=== PATIENT | male | born 1970 | race Caucasian/White ===

== ENCOUNTER 2017-06-08 17:25 | Emergency (ER) | payer BC, OTHER ==
[~2017-06-08] VITALS: Ht 188 cm; Wt 97.5 kg
[2017-06-08 17:56] VITALS: BP_SYST 126
--- NOTE | 2017-06-08 18:00 | NUR ---
Patient triaged and placed in waiting room. VSS and patient appears in no acute distress at this time. Accompanied by FRIEND, awaiting available bed, and MD notified of need for MSE.
--- NOTE | 2017-06-08 19:30 | NUR ---
Placed in hallway.
--- NOTE | 2017-06-08 19:30 | NUR ---
Pt stubbed L pinky toe about a week ago. 9/10 pain and swelling. Will continue to monitor.
--- NOTE | 2017-06-08 19:40 | NUR ---
Sima ROBLES assessing pt.
[2017-06-08 20:06] VITALS: BP_SYST 126
--- NOTE | 2017-06-08 20:06 | NUR ---
Patient given written and verbal discharge instructions and verbalizes understanding. ER MD discussed with patient the results and treatment provided. Patient in stable condition. ID arm band removed. Rx of Motrin given. Patient educated on pain management and to follow up with PMD. Pain Scale 0/10. Opportunity for questions provided and answered.
== END 2017-06-08 20:06 | disposition home or self-care (01) ==
LOC: SED 17:25
DX: S92.532A Displaced fracture of distal phalanx of left lesser toe(s), initial encounter for closed fracture (principal); J45.909 Unspecified asthma, uncomplicated; R03.0 Elevated blood-pressure reading, without diagnosis of hypertension; W23.0XXA Caught, crushed, jammed, or pinched between moving objects, initial encounter; Y93.89 Activity, other specified; Y92.89 Other specified places as the place of occurrence of the external cause; Y99.8 Other external cause status
CPT/HCPCS: 99284

== ENCOUNTER 2017-07-08 12:42 | Emergency (ER) | payer BC ==
[~2017-07-08] VITALS: Ht 188 cm; Wt 97.5 kg
[2017-07-08 12:57] VITALS: BP_SYST 136
[2017-07-08] MEDS ORDERED: ALBUTEROL SULFATE 0.083% 2.5 MG/3 ML VIAL.NEB INH ONE (13:15)
[2017-07-08 13:53] VITALS: BP_SYST 132
== END 2017-07-08 13:53 | disposition home or self-care (01) ==
LOC: SED 12:42
DX: J45.901 Unspecified asthma with (acute) exacerbation (principal)
CPT/HCPCS: 71045; 94640; 99283

== ENCOUNTER 2017-09-09 15:26 | Emergency (ER) | payer BC ==
[~2017-09-09] VITALS: Ht 188 cm; Wt 97.5 kg
[2017-09-09 15:26] VITALS: BP_SYST 120
[2017-09-09 16:08] LABS: BASOPHILS # (AUTO) 0.1 K/uL (0.0-0.2); BASOPHILS % (AUTO) 0.8 % (0.0-2.0); EOSINOPHILS # (AUTO) 0.5 K/uL (0.0-0.4); EOSINOPHILS % (AUTO) 5.8 % (0.0-4.0); HEMATOCRIT 40.4 % (36-54); HEMOGLOBIN 13.5 g/dL (14.0-18.0); LYMPHOCYTES # (AUTO) 2.2 K/uL (1.0-5.5); LYMPHOCYTES % (AUTO) 26.5 % (20.5-51.5); MEAN CORPUSCULAR HEMOGLOBIN 31 pg (27-31); MEAN CORPUSCULAR HGB CONC 33 % (32-36); MEAN CORPUSCULAR VOLUME 92 fL (79.0-98.0); MONOCYTES # (AUTO) 0.6 K/uL (0.0-1.0); MONOCYTES % (AUTO) 6.8 % (1.7-9.3); NEUTROPHILS # (AUTO) 4.8 K/uL (1.8-7.7); NEUTROPHILS % (AUTO) 60.1 % (40.0-70.0); PLATELET COUNT (AUTO) 263 K/uL (130-430); RED BLOOD CELL COUNT(AUTO) 4.41 MIL/uL (4.2-6.2); RED CELL DISTRIBUTION WIDTH 13.3 % (9.0-15.0); WHITE BLOOD COUNT (AUTO) 8.2 K/uL (4.8-10.8)
[2017-09-09 16:15] LABS: CALCIUM 9.3 mg/dL (8.4-11.0); CREATININE 0.75 mg/dL (0.55-1.30); POTASSIUM 3.7 mmol/L (3.5-5.1)
[2017-09-09 16:19] LABS: PROTHROMBIN TIME 10.1 SECS (9.5-12.5)
[2017-09-09 16:23] LABS: ALBUMIN 3.7 g/dL (3.4-4.8); TOTAL BILIRUBIN 0.3 mg/dL (0.0-1.0)
[2017-09-09 17:07] VITALS: BP_SYST 121
== END 2017-09-09 17:05 | disposition home or self-care (01) ==
LOC: SED 15:26
DX: H04.002 Unspecified dacryoadenitis, left lacrimal gland (principal); J45.909 Unspecified asthma, uncomplicated; R03.0 Elevated blood-pressure reading, without diagnosis of hypertension
CPT/HCPCS: 36415; 80053; 85025; 85610-TC; 85730-TC; 99284